=== PATIENT | male | born 1995 | race Caucasian/White ===

== ENCOUNTER 2025-04-05 15:12 | Emergency (ER) | payer SELFPAY ==
[~2025-04-05] VITALS: Ht 167.6 cm; Wt 124.7 kg
[2025-04-05 15:44] LABS: BASOPHILS % 0.5 % (0.0-1.0); EOSINOPHILS % 0.5 % (0.0-6.0); HEMATOCRIT 51.1 % (38.2-49.6); HEMOGLOBIN 17.2 g/dL (14.0-18.0); LYMPHOCYTES # (AUTO) 1.2 (1.0-3.2); LYMPHOCYTES % 21.2 % (18.0-39.1); MEAN CORPUSCULAR HEMOGLOBIN 28.2 pg (28-32); MEAN CORPUSCULAR HGB CONC 33.7 g/dL (31-35); MEAN CORPUSCULAR VOLUME 83.8 fL (81-99); MONOCYTES # (AUTO) 0.3 (0.2-0.8); MONOCYTES % 5.3 % (4.4-11.3); NEUTROPHILS # (AUTO) 4.2 (2.1-6.9); NEUTROPHILS % 71.6 % (38.7-80.0); PLATELET COUNT 263 x10e3/uL (140-360); RED CELL DISTRIBUTION WIDTH 12.4 % (11.7-14.4); WHITE BLOOD COUNT 5.84 x10e3/uL (4.8-10.8)
[2025-04-05] MEDS ORDERED: SODIUM CHLORIDE FLUSH 10 ML SYR IV PRN (15:45)
[2025-04-05 15:55] VITALS: BP 158/101; PULSE 77
[2025-04-05] MEDS: LABETALOL HCL 5 MG/ML 20ML VIAL IV STA (15:55)
[2025-04-05 16:01] LABS: ALBUMIN 4.7 g/dL (3.5-5.0); ALBUMIN/GLOBULIN RATIO 1.5 (0.8-2.0); ANION GAP 19.2 mmol/L (8-16); BILIRUBIN,TOTAL 1.5 mg/dL (0.2-1.2); CALCIUM 9.5 mg/dL (8.4-10.2); CREATININE, SERUM 0.86 mg/dL (0.72-1.25); TOTAL PROTEIN 7.9 g/dL (6.5-8.1)
[2025-04-05 16:07] LABS: TROPONIN I 0.006 ng/mL (0-0.300)
[2025-04-05 16:08] LABS: POTASSIUM 3.2 mmol/L (3.5-5.1)
[2025-04-05 16:49] VITALS: PULSE 71; RESP 16; TEMP 98.8
[2025-04-05 16:50] VITALS: O2SAT 99
[2025-04-05] MEDS ORDERED: AMLODIPINE BESYL5 MG PO (17:17)
== END 2025-04-05 17:49 | disposition home or self-care (01) ==
LOC: ER 15:25
DX: R06.02 Shortness of breath (principal); R07.89 Other chest pain; I16.0 Hypertensive urgency; R94.31 Abnormal electrocardiogram [ECG] [EKG]
CPT/HCPCS: 36415; 71046; 80053; 84484; 85025; 93005; 94760; 99284; J3490